=== PATIENT | female | born 1940 | race Caucasian/White ===

== ENCOUNTER 2017-10-31 06:07 | Emergency (ER) | payer MEDICARE ==
--- NOTE | 2017-10-31 06:32 | ER Document Report ---
ED General - General Chief Complaint: Abdominal Pain Stated Complaint: ABDOMINAL PAIN Time Seen by Provider: 10/31/17 06:30 TRAVEL OUTSIDE OF THE [place] IN LAST 30 DAYS: No - HPI Patient complains to provider of: Abdominal pain Notes: Patient coming in with mid abdominal pain epigastric abdominal pain starting earlier tonight associated with nausea. Patient states no vomiting no diarrhea no bloody stools. Patient states pain is similar to when she had pancreatitis in the past. Patient otherwise states they prior to arrival had a normal daily activities eating normal foods. Patient denies any alcohol abuse. Patient states that her bowels a pink otitis in the past no clear etiology was found to explain why she had pancreatitis. Patient otherwise has a history of hypothyroidism and is on Synthroid patient is also on multiple uvqh-opw-dreucpo herbal supplements. Denies any recent travel. Patient states recently saw her primary care physician because of hematuria states urinalysis did not show infection patient was given a prescription for amoxicillin to cover for urinary tract infection anyways patient states she has taken 3 doses of amoxicillin however this did upset her stomach therefore she is not taking anymore. - Related Data Allergies/Adverse Reactions: famotidine Allergy (Verified 10/31/17 06:13) levofloxacin Allergy (Verified 10/31/17 06:13) methotrexate Allergy (Verified 10/31/17 06:13) Eefrcga-Tfu-Znh Reductase Inhibitor Allergy (Verified 10/31/17 06:13) Sulfa (Sulfonamide Antibiotics) Allergy (Verified 10/31/17 06:13) Past Medical History - Social History Smoking Status: Unknown if Ever Smoked Family History: Reviewed & Not Pertinent Review of Systems - Review of Systems Constitutional: No symptoms reported EENT: No symptoms reported Cardiovascular: No symptoms reported Respiratory: No symptoms reported Gastrointestinal: No symptoms reported Genitourinary: Hematuria Female Genitourinary: No symptoms reported Musculoskeletal: No symptoms reported Skin: No symptoms reported Hematologic/Lymphatic: No symptoms reported Neurological/Psychological: No symptoms reported -: Yes All other systems reviewed and negative Physical Exam - Vital signs Vitals: Temp Pulse Resp BP Pulse Ox 97.8 F 72 20 137/62 H 98 10/31/17 06:20 10/31/17 06:20 10/31/17 06:20 10/31/17 06:20 10/31/17 06:20 Interpretation: Normal - General General appearance: Appears well, Alert - HEENT Head: Normocephalic, Atraumatic Eyes: Normal Pupils: PERRL - Respiratory Respiratory status: No respiratory distress Chest status: Nontender Breath sounds: Normal Chest palpation: Normal - Cardiovascular Rhythm: Regular Heart sounds: Normal auscultation Murmur: No - Abdominal Inspection: Normal Distension: No distension Bowel sounds: Normal Tenderness: Tender - Mild diffuse tenderness Organomegaly: No organomegaly - Back Back: Normal, Nontender - Extremities General upper extremity: Normal inspection, Nontender, Normal color, Normal ROM , Normal temperature General lower extremity: Normal inspection, Nontender, Normal color, Normal ROM , Normal temperature, Normal weight bearing. No: Susanna's sign - Neurological Neuro grossly intact: Yes Cognition: Normal Orientation: AAOx4 [place] Coma Scale Eye Opening: Spontaneous [place] Coma Scale Verbal: Oriented Alyse Coma Scale Motor: Obeys Commands Alyse Coma Scale Total: 15 Speech: Normal Motor strength normal: LUE, RUE, LLE, RLE Sensory: Normal - Psychological Associated symptoms: Normal affect, Normal mood - Skin Skin Temperature: Warm Skin Moisture: Dry Skin Color: Normal Course - Re-evaluation Re-evalutation: 10/31/17 14:48 The patient presents with abdominal pain without signs of peritonitis or other life-threatening or serious etiology. The patient appears stable for discharge and has been instructed to return immediately if the symptoms worsen in any way , or in 8-12hr if not improved for re-evaluation. The patient has been instructed to return if the symptoms worsen or change in any way. Laboratory values CT scan urinalysis are all negative for any acute pathology at this time. Patient's abdomen remains soft no rebound or guarding. Patient will be given Bentyl for home also treat nausea with Zofran. Patient at discharge does state that she was watching her grandson he also had a GI virus and nausea vomiting and diarrhea more likely as possible etiology of the patient's symptoms. Discharged home - Vital Signs Vital signs: Temp Pulse Resp BP Pulse Ox 97.8 F 65 16 124/58 L 98 10/31/17 11:46 10/31/17 11:46 10/31/17 11:46 10/31/17 11:46 10/31/17 11:46 - Laboratory Result Diagrams: 10/31/17 06:50 10/31/17 08:25 Laboratory results interpreted by me: 10/31/17 06:50 RDW 14.3 H Eosinophils % 11.4 H Discharge - Discharge Clinical Impression: Abdominal pain Qualifiers: Abdominal location: unspecified location Qualified Code(s): R10.9 - Unspecified abdominal pain Condition: Good Disposition: HOME, SELF-CARE Instructions: Abdominal Pain ([facility]) Additional Instructions: At this time and did not see any critical etiology for your abdominal pain. Would recommend that we continue with Tylenol for pain control he may also take Motrin once to twice a day. I am also sending home the progression for You to help out with any abdominal cramps that you are having. I will give you a medication because a friend for any nausea that she may have. I would also recommend taking the omeprazole as prescribed. Please follow-up with your primary care physician. At this time her workup does not show any signs of infectious pathology or a surgical pathology causing her pain. I do believe he has underlying viral etiology causing her symptoms. He may experience some diarrhea in the next few days. Most of time these viral etiologies for abdominal pain will take 3-5 days. Would recommend a clear liquid diet for the next 12-24 hours and advance to starchy foods such as toast and cereal. Once you have tolerated toast and cereal for approximately 12-24 hours and may advance to regular diet. Prescriptions: Dicyclomine HCl [Bentyl 20 mg Tablet] 20 mg PO QID #30 tablet Omeprazole 20 mg PO DAILY #14 capsule. Ondansetron [Zofran Odt] 4 mg PO Q6 PRN #30 tab.rapdis PRN Reason: For Nausea/Vomiting Forms: Return to Work
[2017-10-31] MEDS ORDERED: ONDANSETRON HCL INJ/PF 4 MG/2 ML SDV IV ONE (06:38)
[2017-10-31] MEDS ORDERED: PANTOPRAZOLE SODIUM 40 MG VIAL IV ONE (06:38)
[2017-10-31] MEDS ORDERED: NORMAL SALINE 1000 ML 1,000 ML IV ONE ×2 (06:38→07:06)
[2017-10-31 07:06] LABS: ABSOLUTE EOSINOPHILS # (AUTO) 0.6 10^3/uL (0.0-0.6); ABSOLUTE MONOCYTES (AUTO) 0.4 10^3/uL (0.1-1.4); ABSOLUTE NEUT (AUTO) 2.9 10^3/uL (1.7-8.2); BASOPHILS % (AUTO) 0.6 % (0-2); EOSINOPHILS % (AUTO) 11.4 % (0-6); HEMATOCRIT 41.9 % (36.0-47.0); HEMOGLOBIN 14.4 g/dL (12.0-15.5); LYMPHOCYTES % (AUTO) 19.6 % (13-45); MEAN CORPUSCULAR HEMOGLOBIN 31.4 pg (27.0-33.4); MEAN CORPUSCULAR HGB CONC 34.4 g/dL (32.0-36.0); MEAN CORPUSCULAR VOLUME 91 fl (80-97); MONOCYTES % (AUTO) 7.9 % (3-13); PLATELET COUNT 170 10^3/uL (150-450); RED BLOOD COUNT 4.59 10^6/uL (3.72-5.28); RED CELL DISTRIBUTION WIDTH 14.3 % (11.5-14.0); SEGMENTED NEUTROPHILS % (AUTO) 60.5 % (42-78); TOTAL CELLS COUNTED % (AUTO) 100 %; WHITE BLOOD COUNT 4.8 10^3/uL (4.0-10.5)
[2017-10-31 08:17] LABS: APPEARANCE,URINE CLEAR; BILIRUBIN,URINE NEGATIVE (NEGATIVE); COLOR,URINE STRAW; GLUCOSE, URINE NEGATIVE (NEGATIVE); KETONES,URINE NEGATIVE (NEGATIVE); LEUKOCYTE ESTERASE,URINE NEGATIVE (NEGATIVE); NITRITE,URINE NEGATIVE (NEGATIVE); PROTEIN,URINE NEGATIVE (NEGATIVE); URINE SPECIFIC GRAVITY 1.004; UROBILINOGEN,URINE NEGATIVE mg/dL (<2.0)
[2017-10-31 08:57] LABS: ALANINE AMINOTRANSFERASE 22 U/L (9-52); ALBUMIN 3.6 g/dL (3.5-5.0); ALKALINE PHOSPHATASE 63 U/L (38-126); ANION GAP 8 (5-19); ASPARTATE AMINO TRANSFERASE 27 U/L (14-36); BILIRUBIN,DIRECT 0.2 mg/dL (0.0-0.4); BILIRUBIN,TOTAL 1.2 mg/dL (0.2-1.3); BLOOD UREA NITROGEN 8 mg/dL (7-20); CALCIUM 8.6 mg/dL (8.4-10.2); CARBON DIOXIDE 26 mmol/L (22-30); CHLORIDE 106 mmol/L (98-107); GLUCOSE 95 mg/dL (75-110); LIPASE 70.1 U/L (23-300); SODIUM 140.2 mmol/L (137-145); TOTAL PROTEIN 6.5 g/dL (6.3-8.2)
--- NOTE | 2017-10-31 10:04 | RADIOLOGY REPORT (SQ) ---
EXAM DESCRIPTION: CT ABD/PELVIS WITH IV ORAL COMPLETED DATE/TIME: 10/31/2017 9:38 am REASON FOR STUDY: epigastric pain COMPARISON: None. TECHNIQUE: CT scan of the abdomen and pelvis performed using helical scanning technique without and with dynamic intravenous contrast injection. Oral contrast was administered. Images reviewed with josselin ng, soft tissue, and bone windows. Reconstructed coronal and sagittal MPR images reviewed. Delayed im ages for evaluation of the urinary system also acquired. All images stored on PACS. All CT scanners at this facility use dose modulation, iterative reconstruction, and/or weight based d osing when appropriate to reduce radiation dose to as low as reasonably achievable (ALARA). [facility]: Dose Right [facility]: CareDose [facility]: Dose Right [facility]: Teradose 4D [facility]: Myrl CONTRAST TYPE AND DOSE: contrast/concentration: Isovue 350.00 mg/ml; Total Contrast Delivered: 61.0 ml; Total Saline Delivered: 65.0 ml 61 mL Omnipaque 350- low osmolar. RENAL FUNCTION: BUN 8, creatinine 0.59 RADIATION DOSE: CT Rad equipment meets quality standard of care and radiation dose reduction techniq ues were employed. CTDIvol: NaN - NaN mGy. DLP: 0 mGy-cm.. LIMITATIONS: None. FINDINGS: LOWER CHEST: No significant findings. No nodules or infiltrates. LIVER: Normal size. No masses. Mild intrahepatic biliary dilatation. Mildly dilated common duct johnny suring 8 to 9 mm. SPLEEN: Normal size. No focal lesions. PANCREAS: No masses. No significant calcifications. No adjacent inflammation or peripancreatic fluid collections. Pancreatic duct not dilated. GALLBLADDER: Gallbladder is incompletely distended. ADRENAL GLANDS: No significant masses or asymmetry. RIGHT KIDNEY AND URETER: No solid masses. No significant calcifications. No hydronephrosis or hyd roureter. LEFT KIDNEY AND URETER: No solid masses. No significant calcifications. No hydronephrosis or hydr oureter. AORTA AND VESSELS: No aneurysm. Minimal scattered calcified plaque of the visualized aortoiliac syst em. No dissection. Renal arteries, SMA, celiac without stenosis. RETROPERITONEUM: No retroperitoneal adenopathy, hemorrhage or masses. BOWEL AND PERITONEAL CAVITY: No dilated loops of bowel. Scattered diverticulosis colon. No inflamma tory changes. No intraperitoneal free fluid or air. APPENDIX: Surgically absent. PELVIS: No mass. No free fluid. Normal bladder. ABDOMINAL WALL: No masses. No hernias. BONES: Scattered degenerative changes of the visualized spine. No sinister bone lesion. OTHER: No other significant finding. IMPRESSION: 1. No acute findings within the abdomen or pelvis. 2. Nonspecific mild intrahepatic and extrahepatic biliary dilatation without an obstructing lesion vi sualized. Pancreatic duct is not dilated. Gallbladder is incompletely distended appear 3. Diverticulosis without evidence of diverticulitis. TECHNICAL DOCUMENTATION: JOB ID: [id number] Quality ID # [id number]: Final reports with documentation of one or more dose reduction techniques (e.g., Au tomated exposure control, adjustment of the mA and/or kV according to patient size, use of iterative reconstruction technique) 2010 [employer]- All Rights Reserved Reading location - IP/workstation name: [email or web address]
[2017-10-31] MEDS ORDERED: LIDOCAINE 2% VISCOUS SOLN 20 ML UDCUP PO ONE (10:27)
[2017-10-31] MEDS ORDERED: MAG HYDROX/AL HYDROX/SIMETH SUSP 30 ML UDCUP PO ONE (10:27)
[2017-10-31] MEDS ORDERED: METOCLOPRAMIDE HCL ORAL SOLN 10 MG/10 ML UDCUP PO ONE (10:27)
[2017-10-31] MEDS ORDERED: DICYCLOMINE HCL 20 MG TABLET PO ONE (11:30)
[2017-10-31 11:46] VITALS: BP 124/58
== END 2017-10-31 11:53 | disposition home or self-care (01) ==
LOC: ER 06:07
DX: R10.13 Epigastric pain (principal); R10.817 Generalized abdominal tenderness; R11.0 Nausea; R31.9 Hematuria, unspecified; E03.9 Hypothyroidism, unspecified; Z79.899 Other long term (current) drug therapy; Z20.828 Contact with and (suspected) exposure to other viral communicable diseases; Z87.19 Personal history of other diseases of the digestive system; Z88.1 Allergy status to other antibiotic agents; Z88.2 Allergy status to sulfonamides; Z88.8 Allergy status to other drugs, medicaments and biological substances
CPT/HCPCS: 99284; 96361; 96374; 96375; 36415; 83690; 85025; 80053; 81001; 83605; 74177; A9270 ×2; J3490; C9113; J2405; J7030; S0164